=== PATIENT | female | born 1990 | race Caucasian/White ===

== ENCOUNTER 2017-02-08 09:58 | Emergency (ER) | payer BC, OTHER ==
[~2017-02-08] VITALS: Ht 154.9 cm; Wt 78.5 kg
[2017-02-08 11:37] VITALS: BP 121/71
[2017-02-08] MEDS ORDERED: KETOROLAC TROMETH 60MG/2ML VIAL IM ONE (12:15)
== END 2017-02-08 12:46 | disposition home or self-care (01) ==
LOC: ER 09:58
DX: M77.9 Enthesopathy, unspecified (principal); G89.29 Other chronic pain
CPT/HCPCS: 96372; 99283; J1885